=== PATIENT | female | born 1935 | race Hispanic/Latino ===

== ENCOUNTER → 2019-01-14 | Outpatient (CLI) | payer MEDICARE | LOC: MAMMO 13:03 | PROVIDERS: ATTEND Internal Medicine | DX: Z12.31 Encounter for screening mammogram for malignant neoplasm of breast (principal) | CPT/HCPCS: 77067 ==

== ENCOUNTER → 2019-02-21 | Outpatient (CLI) | payer MEDICARE ==
--- NOTE | 2019-02-25 08:29 | Diagnostic Imaging Report ---
#[id number] - [id number] #UNILATERAL LEFT DIGITAL DIAGNOSTIC MAMMOGRAM WITH SPOT COMPRESSION AND MAGNIFICATION: 02/21/2019 Comparison is made to exams dated: 01/14/2019 mammogram, 12/31/2015 mammogram - [facility] and 06/09/2013 mammogram - [facility]. There are scattered fibroglandular elements in the left breast. There are grouped amorphous calcifications in the left breast at 1 o'clock anterior depth. These are seen in additional views. No other significant masses or calcifications are seen in the breast. IMPRESSION: SUSPICIOUS OF MALIGNANCY The grouped amorphous calcifications in the left breast are suspicious of malignancy. A phone call was made to the physician's office. The patient will be contacted by the Mammography Department to schedule this appointment. RINA THOMPSON M.D. kw/:02/24/2019 11:36:20 Bakery Decorator: Dacia WEAVER(Kailyn)(Alysa), [facility] letter sent: Biopsy Required Mammogram BI-RADS: 4 Suspicious abnormality
== END ==
LOC: MAMMO 07:59
PROVIDERS: ATTEND Internal Medicine
DX: R92.1 Mammographic calcification found on diagnostic imaging of breast (principal)

== ENCOUNTER → 2019-12-07 | Outpatient (CLI) | payer MEDICARE ==
--- NOTE | 2019-12-07 14:01 | Diagnostic Imaging Report ---
EXAMINATION: SP LUMBAR, COMPLETE MIN 4VW INDICATION: Spondylolysis COMPARISON: None FINDINGS: AP, lateral, and oblique radiographs of the lumbar spine were obtained. Compression fracture of the superior endplate of L2 has a sclerotic appearance and is most likely chronic. Remaining vertebral body heights are preserved. Alignment remains anatomic. Moderate multilevel degenerative changes with disc space narrowing and osteophyte formation. Oblique views demonstrate no definite spondylolysis. Nonobstructive bowel gas pattern. Surgical clips in the right upper abdomen and left lower abdomen. Coarse calcifications in the pelvis, likely calcified uterine fibroids. Atherosclerotic arterial calcifications. IMPRESSION: Compression fracture of the superior endplate of L2 has a sclerotic appearance and is most likely chronic. 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 Coarse pelvic calcifications, likely uterine fibroids. Signed by: Sera Ruiz MD on 12/07/2019 1:58 PM
--- NOTE | 2019-12-07 17:58 | Diagnostic Imaging Report ---
EXAM: Bone mineral density study 12/07/2019 12:30 PM INDICATION: OSTEOPOROSIS SCREENING COMPARISON: None. FINDINGS: Evaluation of the left hip and lumbar spine was performed. The study is technically adequate. The patient's fracture risk is compared to an age-matched control. The patient denies prior surgery/fracture of the spine, hips or forearm. The left femoral neck bone mineral density is 0.6 gm/cm2, the T-score is -2.5 and the total Z-score is -0.1. The total left hip bone mineral density is 0.7 gm/cm2, the T-score is -1.8 and the total Z-score is 0.4. The lumbar spine total bone mineral density is 1.1 gm/cm2, the T-score is 0.1, and the Z-score is 2.9. IMPRESSION: Bone mineralization by WHO Classification is osteoporosis, the fracture risk is increased. Signed by: Stu Shaikh MD on 12/07/2019 5:55 PM
--- NOTE | 2019-12-09 16:04 | Diagnostic Imaging Report ---
#[id number] - MGDXBIL #BILATERAL DIGITAL DIAGNOSTIC MAMMOGRAM WITH CAD: 12/07/2019 Comparison is made to exams dated: 02/21/2019 mammogram, 01/14/2019 mammogram and 12/31/2015 mammogram - [facility]. There are scattered fibroglandular elements in both breasts. Current study was also evaluated with a Computer Aided Detection (CAD) system. There are stable segmental fine calcifications in the left breast at 1 o'clock anterior depth. Again seen are other numerous scattered benign calcifications in both breasts. No other significant masses, calcifications, or other findings are seen in either breast. IMPRESSION: SUSPICIOUS OF MALIGNANCY The stable segmental fine calcifications in the left breast are at a moderate suspicion for malignancy. A stereotactic biopsy or a surgical consult are recommended. A phone call was made to the physician's office. The patient will be contacted by the Mammography Department to schedule this appointment. RINA THOMPSON M.D. kw/:12/09/2019 09:58:30 Training And Development Rep: Dacia ODONNELL)(Alysa), [facility] letter sent: Biopsy Required Mammogram BI-RADS: 4c Suspicious abnormality - moderate concern but not classic for malignancy
== END ==
LOC: MAMMO 12:01
PROVIDERS: ATTEND Internal Medicine
DX: R92.1 Mammographic calcification found on diagnostic imaging of breast (principal); M81.0 Age-related osteoporosis without current pathological fracture; M43.07 Spondylolysis, lumbosacral region
CPT/HCPCS: 72110; 77066; 77080

== ENCOUNTER → 2020-10-11 | Outpatient (CLI) | payer MEDICARE | LOC: MAMMO 09:56 | PROVIDERS: ATTEND Internal Medicine | DX: Z12.31 Encounter for screening mammogram for malignant neoplasm of breast (principal) | CPT/HCPCS: 77067 ==